=== PATIENT | female | born 1990 | race Caucasian/White ===

== ENCOUNTER 2018-05-16 08:19 | Inpatient (IN) | payer OTHER, MEDICAID ==
[~2018-05-16] VITALS: Ht 170.2 cm; Wt 50.3 kg
[2018-05-16 08:26] VITALS: Ht 170.2 cm; Wt 50.3 kg
[2018-05-16 08:55] LABS: BASOPHIL % 0.1 % (0-2); CALCIUM 8.4 mg/dL (8.5-10.1); CARBON DIOXIDE 21.1 mmol/L (21-32); CHLORIDE SERUM 94 mmol/L (98-107); CREATININE SERUM 0.8 mg/dL (0.6-1.0); GFR1 > 60 mL/min; GLUCOSE SERUM 91 mg/dL (74-106); PLATELET COUNT 288 x10^3mcL (130-400); POTASSIUM SERUM 4.2 mmol/L (3.5-5.1); RED CELL DISTRIBUTION WIDTH 13.1 % (11.5-14.5); SODIUM SERUM 134 mmol/L (136-145)
[2018-05-16 09:00] LABS: ALKALINE PHOSPHATASE 83 U/L (46-116); ALT/SGPT 142 U/L (14-59); AST/SGOT 83 U/L (15-37); BILIRUBIN TOTAL 0.9 mg/dL (0.20-1.00); TOTAL PROTEIN, SERUM 6.2 g/dL (6.4-8.2)
[2018-05-16 09:01] LABS: ALBUMIN 3.2 g/dL (3.4-5.0); AMYLASE 511 U/L (25-115)
[2018-05-16 09:39] LABS: LIPASE 3297 IU/L (73-393)
[2018-05-16 13:03] VITALS: BP 123/86
[2018-05-16 17:05] VITALS: BP 119/82
[2018-05-16 20:50] VITALS: BP 132/79
[2018-05-17 05:06] VITALS: BP 118/75
[2018-05-17 08:16] VITALS: BP 116/85
[2018-05-17 08:24] LABS: CALCIUM 7.6 mg/dL (8.5-10.1); CARBON DIOXIDE 30.6 mmol/L (21-32); CHLORIDE SERUM 101 mmol/L (98-107); CREATININE SERUM 0.6 mg/dL (0.6-1.0); GFR1 > 60 mL/min; GLUCOSE SERUM 97 mg/dL (74-106); POTASSIUM SERUM 3.2 mmol/L (3.5-5.1); SODIUM SERUM 135 mmol/L (136-145)
[2018-05-17 11:28] LABS: BASOPHIL % 0.2 % (0-2); RED CELL DISTRIBUTION WIDTH 13.4 % (11.5-14.5)
[2018-05-17 11:29] LABS: PLATELET COUNT 97 x10^3mcL (130-400)
[2018-05-17 11:58] VITALS: BP 112/69
[2018-05-17 16:21] VITALS: BP 116/88
[2018-05-17 18:25] VITALS: BP 119/53
[2018-05-18 05:49] VITALS: BP 121/92
[2018-05-18 06:02] LABS: CARBON DIOXIDE 33.9 mmol/L (21-32); CHLORIDE SERUM 103 mmol/L (98-107); CREATININE SERUM 0.5 mg/dL (0.6-1.0); GFR1 > 60 mL/min; GLUCOSE SERUM 112 mg/dL (74-106); SODIUM SERUM 140 mmol/L (136-145)
[2018-05-18 06:33] LABS: BASOPHIL % 0.3 % (0-2); PLATELET COUNT 90 x10^3mcL (130-400); RED CELL DISTRIBUTION WIDTH 12.9 % (11.5-14.5)
[2018-05-18 08:13] VITALS: BP 117/82
[2018-05-18 12:16] VITALS: BP 117/88
[2018-05-18 16:40] VITALS: BP 114/87
[2018-05-18 20:03] VITALS: BP 131/86
[2018-05-19 04:54] VITALS: BP 124/74
[2018-05-19 06:39] LABS: BASOPHIL % 0.2 % (0-2); RED CELL DISTRIBUTION WIDTH 12.6 % (11.5-14.5)
[2018-05-19 06:40] LABS: PLATELET COUNT 107 x10^3mcL (130-400)
[2018-05-19 06:47] LABS: CALCIUM 8.2 mg/dL (8.5-10.1); CARBON DIOXIDE 30.1 mmol/L (21-32); CHLORIDE SERUM 102 mmol/L (98-107); CREATININE SERUM 0.5 mg/dL (0.6-1.0); GFR1 > 60 mL/min; GLUCOSE SERUM 123 mg/dL (74-106); POTASSIUM SERUM 3.5 mmol/L (3.5-5.1); SODIUM SERUM 138 mmol/L (136-145)
[2018-05-19 07:45] VITALS: BP 121/87
[2018-05-19 12:28] VITALS: BP 133/94
[2018-05-19 16:39] VITALS: BP 123/84
[2018-05-19 19:50] VITALS: BP 140/72
[2018-05-20 03:58] VITALS: BP 136/85
[2018-05-20 04:04] VITALS: BP 123/87
[2018-05-20 07:00] LABS: BASOPHIL % 0.2 % (0-2); PLATELET COUNT 143 x10^3mcL (130-400); RED CELL DISTRIBUTION WIDTH 12.7 % (11.5-14.5)
[2018-05-20 07:23] LABS: CALCIUM 8.4 mg/dL (8.5-10.1); CARBON DIOXIDE 31.4 mmol/L (21-32); CHLORIDE SERUM 104 mmol/L (98-107); CREATININE SERUM 0.4 mg/dL (0.6-1.0); GFR1 > 60 mL/min; GLUCOSE SERUM 124 mg/dL (74-106); POTASSIUM SERUM 3.6 mmol/L (3.5-5.1); SODIUM SERUM 141 mmol/L (136-145)
[2018-05-20 09:06] VITALS: BP 145/103
[2018-05-20 12:32] VITALS: BP 136/89
[2018-05-20] MEDS ORDERED: DILAUDID4 MG PO (15:34)
[2018-05-20] MEDS ORDERED: PROMETHAZI6.25 MG/5 PO ×2 (15:35→15:58)
[2018-05-20] MEDS ORDERED: AMBIEN10 MG PO ×2 (15:52→15:53)
== END 2018-05-20 16:45 | disposition left against medical advice (07) | DRG 871 ==
LOC: ED 08:19 → DU 11:12 → MU 05-20 14:47
PROVIDERS: Specialist; ADMIT Internal Medicine
DX: A41.9 Sepsis, unspecified organism (principal); K85.20 Alcohol induced acute pancreatitis without necrosis or infection; Z68.1 Body mass index [BMI] 19.9 or less, adult; F11.20 Opioid dependence, uncomplicated; J98.11 Atelectasis; K86.0 Alcohol-induced chronic pancreatitis; R65.20 Severe sepsis without septic shock; G89.4 Chronic pain syndrome; K31.84 Gastroparesis; F10.229 Alcohol dependence with intoxication, unspecified; Z53.21 Procedure and treatment not carried out due to patient leaving prior to being seen by health care provider; E86.0 Dehydration; D72.829 Elevated white blood cell count, unspecified; Y90.0 Blood alcohol level of less than 20 mg/100 ml; F32.9 Major depressive disorder, single episode, unspecified; Z93.1 Gastrostomy status; Z86.711 Personal history of pulmonary embolism; Z93.4 Other artificial openings of gastrointestinal tract status; Z90.49 Acquired absence of other specified parts of digestive tract; Z76.5 Malingerer [conscious simulation]
CPT/HCPCS: 94150; G0480; J1170; J2060; J2543; J2550; J3010; J3490; J7030; J7042

== ENCOUNTER 2018-05-31 13:46 | Inpatient (IN) | payer OTHER, MEDICAID ==
[~2018-05-31] VITALS: Ht 170.2 cm; Wt 50.9 kg
[~2018-05-31 13:46] MED LIST: AMBIEN10 MG PO; DILAUDID4 MG PO; PROMETHAZI6.25 MG/5 PO
--- NOTE | 2018-05-31 13:58 | NUR ---
MOM AT BEDSIDE. DR CARTER SPOKE WITH PT'S MOM AND ASSESSED PT. PT CRYING, PULLING MONITORS OFF AND UNCOOPERATIVE WITH ATTEMPTING TO MEASURE BP. PT REFUSING TO LAY ON BACK. PT IS SQUIRMING, CRYING LOUDLY, AND MOVING AROUND SIDE TO SIDE STATING "IT HURTS." DR CARTER MADE AWARE OF SAME. PT CAME IN BY AMBULANCE FROM HOME WHERE SHE LIVES WITH MOTHER. PT HAS A GTUBE IN PLACE WITH A PISTON SYRINGE ATTACHED. MOM STS PT HAS PORT A CATH ACCESS AND WE ARE OK TO USE IT. PT UNABLE TO STAY STILL AT THIS TIME. MOM STS PT HAS HX OF GASTROPARESIS SO SHE HAS GT FOR MEDICATIONS. EMPTY BOTTLE OF DILAUDID 8MG PO BESIDE PT AND PT'S MOM STS PT HAS PAIN MGMT DOCTOR WORKING WITH HER
[2018-05-31 14:01] VITALS: Ht 170.2 cm; Wt 50.9 kg
--- NOTE | 2018-05-31 14:03 | NUR ---
MEDICS REPORT "HALF OF NARCAN GIVEN IN THE AMBULANCE IM. PT WAS HARDSTICK."
--- NOTE | 2018-05-31 14:04 | NUR ---
MOM GAVE PERMISSION TO RESTRAIN PT FOR MEDICATION ADMINSTRATION. MOM STS PT HAS BEEN RESTRAINED BEFORE
--- NOTE | 2018-05-31 14:05 | NUR ---
PT MOM REPORTS PT HAS BEEN DRINKING OFTEN DUE TO TAPERING OFF PAIN MEDICATIONS. PT DRANK HALF A "LARGE" BOTTLE OF ALCOHOL LAST NIGHT
--- NOTE | 2018-05-31 14:08 | NUR ---
PT MOVING AROUND IN BED, HEAD TO FOOT OF BED. PT CONTINUES TO CRY AND REFUSES TO STAY STILL FOR INTERVENTIONS
--- NOTE | 2018-05-31 14:15 | NUR ---
4 POINTS RESTRAINTS PLACED TO ANNA WRISTS & ANNA LEGS.
--- NOTE | 2018-05-31 14:26 | NUR ---
PT UNCOOPERATIVE, SCREAMING, TOSSING AND TURNING ON GURNEY. MEDICATED PT WITH 5MG HALDOL & 2MG ATIVAN. PLEASE SEE EMAR.
--- NOTE | 2018-05-31 14:57 | NUR ---
PT SITTING UP AND HITTING HEAD AGAINST FOOT OF BED MATTRESS. PT STILL MOANING, GROANING, AND ASKED "WHEN AM I GOING TO BE DISCHARGED?" DR CARTER INFORMED OF SAME
--- NOTE | 2018-05-31 15:25 | NUR ---
PT KICKING, RESTLESS AND STILL MOVING AROUND DESPITE REDIRECTION. PT INSTRUCTED TO NOT KICK THE BEDRAILS D/T SUPERFICIAL SKIN ABRASIONS DEVELOPING. NO ACTIVE BLEED SEEN.
[2018-05-31 15:47] LABS: BASOPHIL % 0.2 % (0-2); PLATELET COUNT 265 x10^3mcL (130-400); RED CELL DISTRIBUTION WIDTH 13.3 % (11.5-14.5)
--- NOTE | 2018-05-31 15:50 | NUR ---
PT STRAIGHT CATHED FOR URINE. PT DID NOT FLINCH OR MOVE DURING PROCEDURE. MOM AWARE. BL LEG RESTRAINTS REMOVED AT THIS TIME
[2018-05-31 15:54] LABS: CALCIUM 7.5 mg/dL (8.5-10.1); CARBON DIOXIDE 26.8 mmol/L (21-32); CHLORIDE SERUM 108 mmol/L (98-107); CREATININE SERUM 0.5 mg/dL (0.6-1.0); GFR1 > 60 mL/min; GLUCOSE SERUM 107 mg/dL (74-106); POTASSIUM SERUM 3.3 mmol/L (3.5-5.1); SODIUM SERUM 148 mmol/L (136-145)
[2018-05-31 16:00] LABS: ALBUMIN 3.6 g/dL (3.4-5.0); ALKALINE PHOSPHATASE 89 U/L (46-116); ALT/SGPT 150 U/L (14-59); AST/SGOT 199 U/L (15-37); BILIRUBIN TOTAL 0.3 mg/dL (0.20-1.00); LIPASE 51 IU/L (73-393); TOTAL PROTEIN, SERUM 6.2 g/dL (6.4-8.2)
[2018-05-31 16:12] LABS: AMPHETAMINE QUAL UR NONE DETECTED (See below)
--- NOTE | 2018-05-31 16:45 | NUR ---
EASY CHEST RISE AND FALL. PT SLEEPING. REMAINS ON FULL MONITORS.
--- NOTE | 2018-05-31 16:54 | NUR ---
DR CARTER AT BEDSIDE SPEAKING TO PT'S MOM REGARDING RESULTS AND POC.
[2018-05-31] MEDS ORDERED: BENADRYL ALLERG25 M1 (16:55)
[2018-05-31] MEDS ORDERED: DILAUDID2 MG PO (16:55)
--- NOTE | 2018-05-31 17:45 | NUR ---
CONTINUES TO SLEEP; BREATHING E/U; SKIN COLOR WNL; REMAINS OFF RESTRAINTS AND ON FULL MONITORS. NAD NOTED
--- NOTE | 2018-05-31 18:24 | NUR ---
PER CHRIS VILA SUP AWAITING SITTER TO COME AT 1900.
--- NOTE | 2018-05-31 18:30 | NUR ---
REPORT GIVEN TO BRENDON MONZON RN
--- NOTE | 2018-05-31 18:34 | NUR ---
PER BRENDON CHAWLA WAS MEDICAL GENETICIST AND TELE UNIT WILL CALL US WHEN TRISHATER IS PRESENT AT THEIR UNIT
--- NOTE | 2018-05-31 19:15 | NUR ---
PT TRANSFERRED TO TELE BED 234B VIA [facility] WITH CARLO MIXON AND EMT AZUCENA. PT TRANSFERRED WITHOUT INCIDENCE.
[2018-05-31 20:00] VITALS: BP 123/88
--- NOTE | 2018-05-31 20:06 | NUR ---
RECEIVED PT FROM ED VIA CLAUD[facility]. ORIENTED PT TO ROOM AND SURROUNDINGS. RIGHT KAREN CATH NOTED. TELE 25 PLACED ON PT READING NSR. INSTRUCTED PT ON THE USE OF CALL LIGHT FOR ASSISTANCE. ENDORSED PT TO PRIMARY NURSE CRISSY
--- NOTE | 2018-05-31 20:49 | NUR ---
CALLED DR. DAVID REGARDING ORDER FOR OK TO USE R KAREN CATH, WAITING FOR ORDERS.
--- NOTE | 2018-05-31 21:29 | NUR ---
PT RESTING IN BED WITH EYES CLOSED, EASILY AROUSABLE, CALM AND COOPERATIVE WITH CARE.
--- NOTE | 2018-06-01 00:16 | NUR ---
PT C/O 10/05 ABDOMINAL PAIN, MEDICATED PER EMAR.
--- NOTE | 2018-06-01 01:17 | NUR ---
PT RESTING IN BED WITH EYES CLOSED. BREATHING E/U. SITTER AT BEDSIDE FOR SAFETY. NO SIGNS OF PAIN NOTED. WILL CONTINUE TO MONITOR.
[2018-06-01 05:26] VITALS: BP 141/91
--- NOTE | 2018-06-01 06:28 | NUR ---
PT HAD RESTFUL NIGHT. NO SIGNS OF PAIN NOTED. SITTER REMAINS AT BEDSIDE. NO S/S ACUTE DISTRESS. ALL NEEDS MET AND ATTENDED TO. NO SIGNIFICANT CHANGES OVERNIGHT. WILL ENDORSE CARE TO ONCOMING SHIFT NURSE.
[2018-06-01 06:36] LABS: PLATELET COUNT 270 x10^3mcL (130-400); RED CELL DISTRIBUTION WIDTH 13.1 % (11.5-14.5)
[2018-06-01 06:51] LABS: CALCIUM 7.8 mg/dL (8.5-10.1); CARBON DIOXIDE 26.8 mmol/L (21-32); CHLORIDE SERUM 107 mmol/L (98-107); CREATININE SERUM 0.5 mg/dL (0.6-1.0); GFR1 > 60 mL/min; GLUCOSE SERUM 96 mg/dL (74-106); POTASSIUM SERUM 3.5 mmol/L (3.5-5.1); SODIUM SERUM 143 mmol/L (136-145)
--- NOTE | 2018-06-01 07:12 | NUR ---
RECEIVED SLEEPING BUT AROUSABLE. IN NO RESP. DISTRESS. VS WNL. NO C/O PAIN OR DISCOMFORT AT THIS TIME. CALL LIGHT WITHIN REACH AND SITTER AT BEDSIDE. WILL CONTINUE WITH PLAN OF CARE.
[2018-06-01 07:20] VITALS: BP 125/88
--- NOTE | 2018-06-01 12:38 | NUR ---
C/O GENERALIZED BODY ACHE, MEDICATED WITH DILAUDID PER ROUTINE ORDER
[2018-06-01 13:11] VITALS: BP 131/90
[2018-06-01 13:21] VITALS: BP 131/90
--- NOTE | 2018-06-01 15:14 | NUR ---
PT DC'D HOME IN NO DISTRESS. AWAKE ALERT AND ORIENTED. VS STABLE. NO ACTIVE SEIZURE ACTIVITIES NOTED. DC INSTRUCTIONS REVIEWED WITH PT AND MOTHER. RX GIVEN. IV ACCESS REMOVED AND SITE WITH NO S/S OF REDNESS OR SWELLING. NO C/O PAIN OR DISCOMFORT AT THE TIME OF DC. PERSONAL BELONGINGS TAKEN HOME.
== END 2018-06-01 15:12 | disposition home or self-care (01) | DRG 917 ==
LOC: ED 13:46 → DU 17:21
PROVIDERS: Emergency Medicine; ADMIT Internal Medicine
DX: T40.601A Poisoning by unspecified narcotics, accidental (unintentional), initial encounter (principal); G93.41 Metabolic encephalopathy; F10.239 Alcohol dependence with withdrawal, unspecified; F11.20 Opioid dependence, uncomplicated; Y90.9 Presence of alcohol in blood, level not specified; Z88.5 Allergy status to narcotic agent; Z88.8 Allergy status to other drugs, medicaments and biological substances; Z86.711 Personal history of pulmonary embolism; Z90.49 Acquired absence of other specified parts of digestive tract; E86.0 Dehydration; Y92.89 Other specified places as the place of occurrence of the external cause; K31.84 Gastroparesis; E87.6 Hypokalemia; Z91.19 Patient's noncompliance with other medical treatment and regimen
CPT/HCPCS: G0480; J1630; J1644; J2060; J2405; J7030; J7042

== ENCOUNTER 2018-08-04 21:03 | Emergency (ER) | payer OTHER, MEDICAID ==
[~2018-08-04] VITALS: Ht 170.2 cm; Wt 46.7 kg
[~2018-08-04 21:03] MED LIST changes: +BENADRYL ALLERG25 M1; +DILAUDID2 MG PO
[2018-08-04 21:10] VITALS: Ht 170.2 cm; Wt 46.7 kg
[2018-08-04 21:58] LABS: BASOPHIL % 0.6 % (0-2); PLATELET COUNT 214 x10^3mcL (130-400); RED CELL DISTRIBUTION WIDTH 13.6 % (11.5-14.5)
[2018-08-04 22:06] LABS: CALCIUM 8.3 mg/dL (8.5-10.1); CARBON DIOXIDE 28.2 mmol/L (21-32); CHLORIDE SERUM 105 mmol/L (98-107); CREATININE SERUM 0.6 mg/dL (0.6-1.0); GFR1 > 60 mL/min; GLUCOSE SERUM 118 mg/dL (74-106); POTASSIUM SERUM 3.9 mmol/L (3.5-5.1); SODIUM SERUM 142 mmol/L (136-145)
[2018-08-04 22:10] LABS: ALBUMIN 3.6 g/dL (3.4-5.0); ALKALINE PHOSPHATASE 50 U/L (46-116); ALT/SGPT 45 U/L (14-59); AST/SGOT 33 U/L (15-37); BILIRUBIN TOTAL 0.23 mg/dL (0.20-1.00); MAGNESIUM 1.6 mg/dL (1.8-2.4)
[2018-08-04 22:12] LABS: TOTAL PROTEIN, SERUM 5.8 g/dL (6.4-8.2)
[2018-08-05 01:35] VITALS: BP 118/82
== END 2018-08-05 01:35 | disposition home or self-care (01) ==
LOC: ED 21:03
PROVIDERS: Emergency Medicine
DX: G40.909 Epilepsy, unspecified, not intractable, without status epilepticus (principal); K31.84 Gastroparesis
CPT/HCPCS: G0480; J1642; J1953; J2060; J3475

== ENCOUNTER 2018-09-27 19:07 | Emergency (ER) | payer OTHER, MEDICAID ==
[~2018-09-27] VITALS: Ht 167.6 cm; Wt 41.3 kg
[2018-09-27 19:14] VITALS: Ht 167.6 cm; Wt 41.3 kg
[2018-09-27 21:03] VITALS: BP 107/79
== END 2018-09-27 21:03 | disposition home or self-care (01) ==
LOC: ED 19:07
DX: T24.001A Burn of unspecified degree of unspecified site of right lower limb, except ankle and foot, initial encounter (principal); Z90.89 Acquired absence of other organs; Z90.49 Acquired absence of other specified parts of digestive tract; X11.8XXA Contact with other hot tap-water, initial encounter; Y93.89 Activity, other specified; Y92.89 Other specified places as the place of occurrence of the external cause; Y99.8 Other external cause status
CPT/HCPCS: J3010

== ENCOUNTER 2019-03-05 23:13 | Emergency (ER) | payer OTHER, MEDICAID ==
[~2019-03-05] VITALS: Ht 162.6 cm; Wt 54.4 kg
[2019-03-05 23:29] VITALS: Ht 162.6 cm; Wt 54.4 kg
[2019-03-06 00:41] LABS: BASOPHIL % 0 % (0-2); PLATELET COUNT 219 x10^3mcL (130-400)
[2019-03-06 00:42] LABS: CALCIUM 8.1 mg/dL (8.5-10.1); CARBON DIOXIDE 27.6 mmol/L (21-32); CHLORIDE SERUM 95 mmol/L (98-107); CREATININE SERUM 0.8 mg/dL (0.6-1.0); GFR1 > 60 mL/min; GLUCOSE SERUM 118 mg/dL (74-106); POTASSIUM SERUM 3.4 mmol/L (3.5-5.1); SODIUM SERUM 137 mmol/L (136-145)
[2019-03-06 00:46] LABS: ALKALINE PHOSPHATASE 75 U/L (46-116); ALT/SGPT 96 U/L (14-59); AST/SGOT 245 U/L (15-37); BILIRUBIN TOTAL 0.3 mg/dL (0.20-1.00); TOTAL PROTEIN, SERUM 7.1 g/dL (6.4-8.2)
[2019-03-06 00:47] LABS: CHOLESTEROL 313 mg/dL (<200)
[2019-03-06 02:57] VITALS: BP 125/88
[2019-04-23] MEDS ORDERED: NEURONTIN250 MG/5 M PEG (19:14)
[2019-04-23] MEDS ORDERED: ESCITALOPRAM OX10 MG PEG (19:15)
[2019-04-23] MEDS ORDERED: VITAMIN D50000 I4 PO (19:19)
[2019-04-23] MEDS ORDERED: KEPPRA XR500 M2 PO (19:21)
[2019-04-23] MEDS ORDERED: ROBAXIN-750750 MG PEG (19:22)
[2019-04-23] MEDS ORDERED: PHE25 PEG (19:24)
[2019-04-23] MEDS ORDERED: VAL5 PEG (19:25)
[2019-04-23] MEDS ORDERED: DILAUDID8 M1 PEG (19:26)
[2019-04-23] MEDS ORDERED: ALLERGY RELIEF10 M3 PEG (19:27)
== END 2019-03-06 02:57 | disposition home or self-care (01) ==
LOC: ED 23:13
PROVIDERS: Emergency Medicine
DX: F10.120 Alcohol abuse with intoxication, uncomplicated (principal); E87.6 Hypokalemia; R00.0 Tachycardia, unspecified; Z88.6 Allergy status to analgesic agent; Z88.5 Allergy status to narcotic agent; Z98.890 Other specified postprocedural states; Z90.89 Acquired absence of other organs; Z90.49 Acquired absence of other specified parts of digestive tract
CPT/HCPCS: 36600; G0480; J1642; J7030; Q0092

== ENCOUNTER 2019-05-11 22:01 | Emergency (ER) | payer OTHER, MEDICAID ==
[~2019-05-11] VITALS: Ht 170.2 cm; Wt 43.5 kg
[~2019-05-11 22:01] MED LIST changes: +ALLERGY RELIEF10 M3 PEG; +DILAUDID8 M1 PEG; +ESCITALOPRAM OX10 MG PEG; +KEPPRA XR500 M2 PO; +NEURONTIN250 MG/5 M PEG; +PHE25 PEG; +ROBAXIN-750750 MG PEG; +VAL5 PEG; +VITAMIN D50000 I4 PO
[2019-05-11 22:11] VITALS: Ht 170.2 cm; Wt 43.5 kg
[2019-05-11 23:45] LABS: BASOPHIL % 0.3 % (0-2); PLATELET COUNT 267 x10^3mcL (130-400); RED CELL DISTRIBUTION WIDTH 14.4 % (11.5-14.5)
[2019-05-12 00:01] LABS: CALCIUM 7.9 mg/dL (8.5-10.1); CARBON DIOXIDE 34.7 mmol/L (21-32); CHLORIDE SERUM 105 mmol/L (98-107); CREATININE SERUM 0.5 mg/dL (0.6-1.0); GFR1 > 60 mL/min; GLUCOSE SERUM 87 mg/dL (74-106); POTASSIUM SERUM 3.6 mmol/L (3.5-5.1); SODIUM SERUM 143 mmol/L (136-145)
[2019-05-12 00:32] VITALS: BP 104/68
== END 2019-05-12 01:00 | disposition home or self-care (01) ==
LOC: ED 22:01
PROVIDERS: Emergency Medicine
DX: G40.909 Epilepsy, unspecified, not intractable, without status epilepticus (principal); K31.84 Gastroparesis; Z88.6 Allergy status to analgesic agent; Z88.8 Allergy status to other drugs, medicaments and biological substances; Z90.49 Acquired absence of other specified parts of digestive tract; Z98.890 Other specified postprocedural states; Z90.89 Acquired absence of other organs
CPT/HCPCS: G0480; J1630; J1953; J3010

== ENCOUNTER 2020-01-06 21:48 | Inpatient (IN) | payer OTHER, MEDICAID ==
[~2020-01-06] VITALS: Ht 165.1 cm; Wt 59.0 kg
[2020-01-06 22:20] VITALS: Ht 165.1 cm; Wt 59.0 kg
[2020-01-06 22:44] LABS: BASOPHIL % 0.3 % (0-2); PLATELET COUNT 225 x10^3mcL (130-400); RED CELL DISTRIBUTION WIDTH 13.4 % (11.5-14.5)
[2020-01-06 22:47] LABS: CARBON DIOXIDE 30.4 mmol/L (21-32); CHLORIDE SERUM 98 mmol/L (98-107); CREATININE SERUM 0.9 mg/dL (0.6-1.0); GFR1 > 60 mL/min; GLUCOSE SERUM 97 mg/dL (74-106); POTASSIUM SERUM 3.7 mmol/L (3.5-5.1); SODIUM SERUM 133 mmol/L (136-145)
[2020-01-06 22:52] LABS: ALBUMIN 2.9 g/dL (3.4-5.0); ALKALINE PHOSPHATASE 109 U/L (46-116); ALT/SGPT 48 U/L (14-59); AST/SGOT 40 U/L (15-37); BILIRUBIN TOTAL 0.92 mg/dL (0.20-1.00); TOTAL PROTEIN, SERUM 6.1 g/dL (6.4-8.2)
[2020-01-06 23:36] LABS: microscopic required? YES; urine erythrocyte NEGATIVE (NEGATIVE)
[2020-01-07 00:05] LABS: AMPHETAMINE QUAL UR POSITIVE (See below)
[2020-01-07 03:13] LABS: BILIRUBIN DIRECT 0.64 mg/dL (0.0-0.2); BILIRUBIN TOTAL 1.05 mg/dL (0.20-1.00)
[2020-01-07 03:33] LABS: ALBUMIN 2.6 g/dL (3.4-5.0); TOTAL PROTEIN, SERUM 5.3 g/dL (6.4-8.2)
[2020-01-07 04:58] LABS: PLATELET COUNT 167 x10^3mcL (130-400); RED CELL DISTRIBUTION WIDTH 12.7 % (11.5-14.5)
[2020-01-07 04:59] LABS: CALCIUM 7.5 mg/dL (8.5-10.1); CARBON DIOXIDE 29.4 mmol/L (21-32); CHLORIDE SERUM 101 mmol/L (98-107); CREATININE SERUM 0.7 mg/dL (0.6-1.0); GFR1 > 60 mL/min; GLUCOSE SERUM 102 mg/dL (74-106); MAGNESIUM 1.4 mg/dL (1.8-2.4); PHOSPHOROUS 2.9 mg/dL (2.5-4.9); POTASSIUM SERUM 3.7 mmol/L (3.5-5.1); SODIUM SERUM 134 mmol/L (136-145)
[2020-01-07 05:01] LABS: BASOPHIL % 2.1 % (0-2)
[2020-01-07 11:44] VITALS: BP 99/61
[2020-01-07 12:04] VITALS: BP 108/63
[2020-01-07 12:30] VITALS: BP 108/63
[2020-01-07 16:54] VITALS: BP 108/66
[2020-01-07 19:43] VITALS: BP 103/56
[2020-01-08 05:42] VITALS: BP 110/70
[2020-01-08 09:18] VITALS: BP 118/66
[2020-01-08 10:09] LABS: CALCIUM 7.3 mg/dL (8.5-10.1); CARBON DIOXIDE 26.2 mmol/L (21-32); CHLORIDE SERUM 102 mmol/L (98-107); CREATININE SERUM 0.6 mg/dL (0.6-1.0); GFR1 > 60 mL/min; GLUCOSE SERUM 119 mg/dL (74-106); MAGNESIUM 1.8 mg/dL (1.8-2.4); PHOSPHOROUS 1.8 mg/dL (2.5-4.9); POTASSIUM SERUM 3.3 mmol/L (3.5-5.1); SODIUM SERUM 132 mmol/L (136-145)
[2020-01-08 10:31] LABS: BASOPHIL % 0.2 % (0-2); PLATELET COUNT 133 x10^3mcL (130-400); RED CELL DISTRIBUTION WIDTH 13.2 % (11.5-14.5)
[2020-01-08 17:56] VITALS: BP 106/65
[2020-01-08 19:38] VITALS: BP 103/63
[2020-01-09 04:32] VITALS: BP 111/68
[2020-01-09 06:42] LABS: BASOPHIL % 0.3 % (0-2); PLATELET COUNT 132 x10^3mcL (130-400); RED CELL DISTRIBUTION WIDTH 13.2 % (11.5-14.5)
[2020-01-09 06:43] LABS: CALCIUM 7.3 mg/dL (8.5-10.1); CARBON DIOXIDE 26.4 mmol/L (21-32); CHLORIDE SERUM 99 mmol/L (98-107); CREATININE SERUM 0.5 mg/dL (0.6-1.0); GFR1 > 60 mL/min; GLUCOSE SERUM 95 mg/dL (74-106); MAGNESIUM 1.5 mg/dL (1.8-2.4); PHOSPHOROUS 1.9 mg/dL (2.5-4.9); SODIUM SERUM 132 mmol/L (136-145)
[2020-01-09 07:41] VITALS: BP 127/88
[2020-01-09 12:30] VITALS: BP 142/99
[2020-01-09 16:45] VITALS: BP 127/95
[2020-01-09 20:37] VITALS: BP 113/82
[2020-01-10 06:55] VITALS: BP 122/91
[2020-01-10 06:56] LABS: BASOPHIL % 0.4 % (0-2); PLATELET COUNT 139 x10^3mcL (130-400); RED CELL DISTRIBUTION WIDTH 13.2 % (11.5-14.5)
[2020-01-10 07:17] LABS: CALCIUM 8.2 mg/dL (8.5-10.1); CARBON DIOXIDE 25.8 mmol/L (21-32); CHLORIDE SERUM 101 mmol/L (98-107); CREATININE SERUM 0.5 mg/dL (0.6-1.0); GFR1 > 60 mL/min; GLUCOSE SERUM 97 mg/dL (74-106); MAGNESIUM 1.8 mg/dL (1.8-2.4); PHOSPHOROUS 2.9 mg/dL (2.5-4.9); POTASSIUM SERUM 3.3 mmol/L (3.5-5.1); SODIUM SERUM 136 mmol/L (136-145)
[2020-01-10 08:05] VITALS: BP 111/79
[2020-01-10] MEDS ORDERED: LAC PO (09:10)
[2020-01-10] MEDS ORDERED: LEVAQUIN500 M1 PO (09:10)
[2020-01-10 11:33] VITALS: BP 111/79
== END 2020-01-10 12:30 | disposition home or self-care (01) | DRG 871 ==
LOC: ED 21:48 → DU 23:16
PROVIDERS: Emergency Medicine; ADMIT Internal Medicine; ATTEND Internal Medicine
DX: A41.9 Sepsis, unspecified organism (principal); J69.0 Pneumonitis due to inhalation of food and vomit; G92 Toxic encephalopathy; E87.1 Hypo-osmolality and hyponatremia; T40.2X1A Poisoning by other opioids, accidental (unintentional), initial encounter; T43.621A Poisoning by amphetamines, accidental (unintentional), initial encounter; Z20.828 Contact with and (suspected) exposure to other viral communicable diseases
CPT/HCPCS: 36600; 92526-GN; 92610-GN; G0378; G0480; J1170; J2060; J2310; J2543; J3370; J3480; J7030